=== PATIENT | female | born 1960 | race Caucasian/White ===

== ENCOUNTER 2018-03-17 08:53 | Day surgery (SDC) | payer OTHER ==
[2018-03-17] MEDS ORDERED: FENTAnyl 50 MCG/ML VIAL (11:57)
[2018-03-17] MEDS ORDERED: MIDAZOLAM 1 MG/ML 2 ML INJ ×3 (11:57)
== END 2018-03-17 16:13 | disposition home or self-care (01) ==
LOC: GIL 08:53
DX: Z12.11 Encounter for screening for malignant neoplasm of colon (principal); K64.8 Other hemorrhoids
CPT/HCPCS: 45378